=== PATIENT | male | born 1985 | race Caucasian/White ===

== ENCOUNTER 2022-09-20 18:26 | Emergency (ER) | payer BC ==
[~2022-09-20] VITALS: Ht 180.3 cm; Wt 110.2 kg
--- NOTE | 2022-09-20 18:35 | NUR ---
PT WALKED INTO ER FOR RIGHT 5TH FINGERTIP AVULSION W/ MANDOLIN SLICER 1 1/2 HR AGO. PT SUSTAINED A 1 CM, WELL APPROXIMATED LACERATION WITH MODERATE BLEEDING. PT WALKED TO BED WITH STEADY GAIT, AWAITING MD FOR EVAL.
[2022-09-20] MEDS ORDERED: LIDOCAINE 1%-EPI 1:100,000 20 ML VIAL ONE (18:38)
--- NOTE | 2022-09-20 18:54 | NUR ---
AT BEDSIDE FOR LAC REPAIR.
[2022-09-20] MEDS ORDERED: AMOX-430 PO (19:27)
[2022-09-20] MEDS ORDERED: TDAP [DIPH/PERTUSSIS/TET] 0.5 ML VIAL IM ONE ×2 (19:27→19:30)
--- NOTE | 2022-09-20 19:45 | NUR ---
Patient discharged to home in stable condition. Written and verbal after care instructions given. Patient verbalizes understanding of instruction.
[2022-09-20 19:46] VITALS: BP 129/71; TEMP 98
== END 2022-09-20 19:46 | disposition home or self-care (01) ==
LOC: ER 18:34
DX: S61.316A Laceration without foreign body of right little finger with damage to nail, initial encounter (principal); Z79.899 Other long term (current) drug therapy; W26.8XXA Contact with other sharp object(s), not elsewhere classified, initial encounter; Y93.89 Activity, other specified; Y92.89 Other specified places as the place of occurrence of the external cause; Y99.8 Other external cause status
CPT/HCPCS: 12001; 90471; 90715; 99283; A6403; J3490